=== PATIENT | male | born 1970 | race Caucasian/White ===

== ENCOUNTER 2018-09-25 12:33 | Inpatient (IN) | payer BC ==
[2018-09-25] MEDS ORDERED: morphine CARPU-JECT 4 MG/1 ML DISP.SYRIN IVPUSH ONE (13:30)
--- NOTE | 2018-09-25 13:33 | PDOC ---
History of Present Illness - General Chief Complaint: Urinary Problem Stated Complaint: URINE PROBLEM Time Seen by Provider: 09/25/18 13:28 History Source: Patient Exam Limitations: No Limitations - History of Present Illness Initial Comments: 09/25/18 14:13 47 yo M w/ no known PMHx comes in c/o 1 week of polyuria, polydipsia, dry lips. Also c/o generalized malaise, nausea and 2-3 episodes of NBNB vomiting yesterday. NO other complaints today, no fever/chills, no diarrhea, no burning/ pain on urination, no back pain, no CP, no SOB, no known sick contacts, no recent travel. Pt does not have a PMD. 09/25/18 16:04 Past History - Past Medical History Allergies/Adverse Reactions: Allergies Allergy/AdvReac Type Severity Reaction Status Date / Time No Known Allergies Allergy Verified 09/25/18 12:57 Home Medications: Ambulatory Orders Azithromycin [Zithromax Z-JACINTA (5 DAYS) -] 250 mg PO DAILY #6 tablet 08/19/15 Codeine/Promethazine HCl [Phenergan w/ Codeine Syrup] 1 - 2 tsp PO TID PRN #120 ml 08/19/15 COPD: No - Surgical History Abdominal Surgery: Yes (HERNIA 1997) - Suicide/Smoking/Psychosocial Hx Smoking History: Never smoked Have you smoked in the past 12 months: No Hx Alcohol Use: No Drug/Substance Use Hx: No Substance Use Type: None Review of Systems - Review of Systems Able to Perform ROS?: Yes Constitutional: Yes: Malaise. No: Chills, Fever, Night Sweats HEENTM: No: Eye Pain, Recent change in vision, Throat Pain Respiratory: No: Cough, Shortness of Breath Cardiac (ROS): No: Chest Pain, Palpitations, Chest Tightness ABD/GI: Yes: Nausea, Vomiting. No: Diarrhea, Abdominal cramping : No: Dysuria, Hematuria Musculoskeletal: No: Back Pain Integumentary: No: Rash Neurological: No: Headache, Numbness, Dizziness Psychiatric: No: Change in Appetite Endocrine: No: Unexplained Weight Loss *Physical Exam - Vital Signs Last Vital Signs Temp Pulse Resp BP Pulse Ox 98.4 F 109 H 20 147/95 98 09/25/18 12:55 09/25/18 12:55 09/25/18 12:55 09/25/18 12:55 09/25/18 12:55 - Physical Exam General Appearance: Yes: Nourished, Other (obese). No: Apparent Distress HEENT: positive: CLAUDIA, Normal Voice, Other (dry mucosa). negative: Pale Conjunctivae, Scleral Icterus (R), Scleral Icterus (L) Neck: positive: Supple. negative: Decreased range of motion, Tender midline Respiratory/Chest: positive: Lungs Clear, Normal Breath Sounds. negative: Respiratory Distress, Accessory Muscle Use Cardiovascular: positive: Regular Rhythm, Regular Rate Gastrointestinal/Abdominal: positive: Normal Bowel Sounds, Soft. negative: Tender Musculoskeletal: positive: Normal Inspection. negative: CVA Tenderness, Decreased Range of Motion Extremity: positive: Normal Capillary Refill, Normal Inspection, Normal Range of Motion. negative: Tender, Pedal Edema Integumentary: positive: Normal Color, Dry. negative: Jaundice, Rash Neurologic: positive: Fully Oriented, Alert, Normal Mood/Affect Moderate Sedation - Procedure Monitoring Vital Signs: Procedure Monitoring Vital Signs Temperature 98.4 F 09/25/18 12:55 Pulse Rate 109 H 09/25/18 12:55 Respiratory Rate 09/25/18 12:55 Blood Pressure 147/95 09/25/18 12:55 O2 Sat by Pulse Oximetry (%) 98 09/25/18 12:55 ED Treatment Course - LABORATORY CBC & Chemistry Diagram: 09/25/18 14:12 09/25/18 14:12 Medical Decision Making - Medical Decision Making 47 yo M w/ polyuria, polydipsia, vomiting/nausea R/O new onset DM/DKA 09/25/18 14:00 FS really high, will line and lab, order fluids 09/25/18 15:01 I ordered 7u of insulin regular IV and another bolus of NS Will admit for R/O DKA in new onset DM. I spoke to the hospitalist who asked to page the MICU 09/25/18 16:07 09/25/18 16:27 MICU here seeing patient 09/25/18 17:42 MICU saw patient, hospitalist saw patient, will admit to MICU for Hyperglycemic hyperosmolar state. Insulin drip ordered. 09/25/18 19:11 Patient's care signed over to admitting team *DC/Admit/Observation/Transfer Diagnosis at time of Disposition: Hyperglycemia - Discharge Dispostion Condition at time of disposition: Stable Decision to Admit order: Yes - Referrals - Patient Instructions - Post Discharge Activity - Transfer to Acute Care Facility Accepting Physician:: Dr. Villalobos
[2018-09-25 14:36] LABS: VENOUS PH 7.41 (7.32-7.42)
[2018-09-25 14:43] LABS: BASO % 0.6 % (0-2.0); EOS % 0.2 % (0-4.5); HEMATOCRIT 42.1 % (35.4-49); HEMOGLOBIN 14.4 GM/dL (11.7-16.9); MCH 29.9 pg (25.7-33.7); MCHC 34.3 g/dl (32.0-35.9); MEAN PLT VOLUME 8.8 fl (7.5-11.1); MONO % 8.1 % (3.8-10.2); NEUT % 71.1 % (42.8-82.8); PLATELET COUNT 255 K/MM3 (134-434); RBC 4.83 M/mm3 (4.00-5.60); RDW 12.9 % (11.9-15.9); WHITE BLOOD COUNT 7.8 K/mm3 (4.0-10.0)
[2018-09-25 15:03] LABS: ALBUMIN 4.2 g/dl (3.4-5.0); ALK PHOS 152 U/L (45-117); ANION GAP 14 MMOL/L (8-16); BILIRUBIN,TOTAL 0.8 mg/dL (0.2-1); BLOOD UREA NITROGEN 23 mg/dL (7-18); CALCIUM 10.1 mg/dL (8.5-10.1); CHLORIDE 85 mmol/L (98-107); CO2 25 mmol/L (21-32); CREATININE 1.4 mg/dL (0.55-1.3); LIPASE 279 U/L (73-393); MAGNESIUM 2.6 mg/dL (1.8-2.4); SGOT/AST 14 U/L (15-37); SGPT/ALT 44 U/L (13-61); SODIUM 123 mmol/L (136-145); TOT PROT 8.1 g/dl (6.4-8.2)
[2018-09-25 15:07] LABS: GLUCOSE,RANDOM 832 mg/dL (74-106)
[2018-09-25] MEDS ORDERED: SODIUM CHLORIDE 1,000 ML IV STA (15:59)
[2018-09-25] MEDS ORDERED: INSULIN REGULAR HUMAN 100 UNITS/ML *VIAL IVPUSH ONE (15:59)
[2018-09-25] MEDS ORDERED: INSULIN (NOVOLOG) ASPART 100 UNITS/ML 10ML VIAL ONE (16:08)
[2018-09-25 16:16] LABS: URINE APPEARANCE CLEAR; URINE BILIRUBIN NEGATIVE (<2.0 mg/dL); URINE COLOR COLORLESS; URINE GLUCOSE (UA) 3+ (NEGATIVE); URINE KETONE 1+ (NEGATIVE); URINE LEUK ESTERASE NEGATIVE (NEGATIVE); URINE NITRITE NEGATIVE (NEGATIVE); URINE PROTEIN NEGATIVE (NEGATIVE); URINE UROBILINOGEN NEGATIVE mg/dL (0.2-1.0)
[2018-09-25] MEDS ORDERED: SODIUM CHLORIDE 0.9%/KCL 20 MEQ/1,000 ML INFUS.BAG IV SCH (17:00)
[2018-09-25] MEDS ORDERED: INSULIN REGULAR 100 UNITS in SODIUM CHLORIDE 99 ML IVPB SCH (17:00)
[2018-09-25] MEDS ORDERED: POTASSIUM CHLORIDE TABS 20 MEQ TABLET.ER (FP) PO ONE (17:01)
[2018-09-25] MEDS ORDERED: POTASSIUM CHLORIDE ORAL LIQUID 20 MEQ/15 ML PO ONE (17:04)
[2018-09-25] MEDS ORDERED: INSULIN REGULAR HUMAN 100 UNITS/ML *VIAL ONE (17:10)
[2018-09-25] MEDS ORDERED: POTASSIUM CHLORIDE ORAL LIQUID 20 MEQ/15 ML ONE (17:16)
--- NOTE | 2018-09-25 17:16 | HP ---
Admitting History and Physical - Admission Chief Complaint: polyuria, polydypsia and polyphasia History of Present Illness: this is 47 y/o male patient presented to the hospital after the patient has been having increase urine frequency, increase in thirst and hunger for the past week. he stated that this is the first time he had symptoms like this and decided to come to the hospital. he was complaining also of nausea associated with vomiting twice once after eating a subway sandwich yesterday and the other after eating bowl of cereal this morning. 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: Alzheimer's, CVA, Dementia, Migraine, Multiple Sclerosis, Peripheral Neuropathy, Parkinson's, Seizure, Syncope, TIA, Vertigo, Other Cardiovascular: No: AFIB, Aneurysm, Aortic Insufficiency, Aortic Stenosis, CAD, CHF, Deep Vein Thrombosis, HTN, Hyperlipdemia, [place], Mitral Insufficiency, Mitral Stenosis, Murmur, Pulmonary Hypertension, Other Pulmonary: No: Asthma, Bronchitis, Cancer, COPD, O2 Dependent, Pneumonia, Previously Intubated, Pulmonary Embolus, Pulmonary Fibrosis, Sleep Apnea, Other Gastrointestinal: No: Ascites, Cancer, Constipation, Crohn's Disease, Diverticulitis, Diverticulosis, Esophageal Varices, Gastritis, GERD, GI Bleed, Hemorrhoids, Hiatal Hernia, Inflamatory Bowel Disease, Irritable Bowel Disease, Pancreatitis, Peptic Ulcer Disease, Ulcerative Colitis, Other Hepatobiliary: No: Cirrhosis, Cholelithiasis, Cholecystitis, Choledocholithiasis , Hepatitis A, Hepatitis B, Hepatitis C, Other Renal/: No: Renal Failure, Renal Inusuff, BPH, Cancer, Hematuria, Hemodialysis , Neurogenic Bladder, Renal Calculi, UTI, Other Heme/Onc: No: Anemia, B12 Deficiency, Bleeding Disorder, Cancer, Current Chemotherapy, Current Radiation Therapy, Hemochromatosis, Hypercoaguable State, Myeloproliferative Synd, Sickle Cell Disease, Sickle Cell Trait, Thrombocytopenia, Other Infectious Disease: No: AIDS, C-Diff, Herpes Zoster, HIV, MRSA, STD's, Tuberculosis, VREF, Other - Smoking History Smoking history: Never smoked Have you smoked in the past 12 months: No - Alcohol/Substance Use Hx Alcohol Use: No Home Medications - Allergies Allergies/Adverse Reactions: Allergies Allergy/AdvReac Type Severity Reaction Status Date / Time No Known Allergies Allergy Verified 09/25/18 12:57 - Home Medications Home Medications: Ambulatory Orders Azithromycin [Zithromax Z-JACINTA (5 DAYS) -] 250 mg PO DAILY #6 tablet 08/19/15 Codeine/Promethazine HCl [Phenergan w/ Codeine Syrup] 1 - 2 tsp PO TID PRN #120 ml 08/19/15 Review of Systems - Review of Systems Constitutional: reports: No Symptoms Eyes: reports: No Symptoms HENT: reports: No Symptoms Neck: reports: No Symptoms Cardiovascular: reports: No Symptoms Respiratory: reports: No Symptoms Gastrointestinal: reports: Nausea, Vomiting Genitourinary: reports: Incontinence, Urgency Musculoskeletal: reports: No Symptoms Integumentary: reports: No Symptoms Neurological: reports: No Symptoms Endocrine: reports: Increased Hunger, Increased Thirst Hematology/Lymphatic: reports: No Symptoms Psychiatric: reports: No Symptoms Physical Examination Vital Signs: Vital Signs Temperature 98.4 F 09/25/18 12:55 Pulse Rate 109 H 09/25/18 12:55 Respiratory Rate 20 09/25/18 12:55 Blood Pressure 147/95 09/25/18 12:55 O2 Sat by Pulse Oximetry (%) 98 09/25/18 12:55 Constitutional: Yes: Obese (class III obesity) Eyes: Yes: WNL, Conjunctiva Clear, EOM Intact HENT: Yes: WNL, Atraumatic, Normocephalic Neck: Yes: WNL, Supple, Trachea Midline Cardiovascular: Yes: WNL, Regular Rate and Rhythm, S1, S2 Respiratory: Yes: WNL, Regular, CTA Bilaterally Gastrointestinal: Yes: WNL, Normal Bowel Sounds, Soft ...Rectal Exam: Yes: Deferred Musculoskeletal: Yes: WNL Extremities: Yes: WNL Edema: No Peripheral Pulses WNL: No Integumentary: Yes: WNL Neurological: Yes: WNL, Alert, Oriented ...Motor Strength: WNL Psychiatric: Yes: WNL, Oriented Labs: CBC, BMP 09/25/18 14:12 09/25/18 14:12 Assessment/Plan this is a 47 y/o male presented to the hospital for excessive urination and thirst found to have elevated blood glucose - patient is being admitted to the hospital for hyperglycemic hyperosmolar state with electrolyte abnormalities and JAMES Plan; Hyperglycemic hyperosmolor state: start the patient on insulin drip titrate the drip accordingly then D/c patient should get long acting insulin prior to d/c the drip admit the patient to the MICU for management supplement the potassium for the patient while on the drip labs q6 hours IVF hydration @200cc/hr x 8 hours then 150cc/hr, adjust accordingly obtain an echocardiogram for the patient A1c level cholesterol level triglyceride level consult endocrine consult MICU patient requires an eye exam after d.c diabetic nurse education computer numerical control grinder evaluation JAMES 2/2 hyperosmolar state with excessive urine loss IV fluid hydration monitor kidney function pesudohyponatremia: corrected sodium 138 monitor levels
--- NOTE | 2018-09-25 17:40 | CONSULT ---
Consultation: REQUESTING PROVIDER: CONSULT REQUEST: We have been asked to medically evaluate this patient for ( specify). HISTORY OF PRESENT ILLNESS: 47 y/o M with no significant PMHx presents to the ED with Polyuria, Polydipsia. Patient has not seen a PCP in many years. Approx. 10 days ago, patient began experiencing worsening Polyuria; Currently he is unable to sleep longer than 45 minutes without having to awaken to urinate. Additionally this was accompanied by Polydipsia, polyphagia, dry oral cavity, generalized Malaise. Yesterday patient also experienced nausea accompanied by multiple episodes of NBNB vomiting that have since resolved. This is the first time he has experienced these symptoms. He is unable to identify any aggravating or relieving sx's. He denies any recent weight loss, blurry vision, numbness or tingling in his extremities, or abdominal pain. Denies any recent fevers, chills, chest pain, SOB, diarrhea, constipation, dysuria, hematuria. REVIEW OF SYSTEMS: As per HPI PHYSICAL EXAMINATION Vital Signs - 24 hr 09/25/18 12:55 Temperature 98.4 F Pulse Rate 109 H Respiratory 20 Rate Blood Pressure 147/95 O2 Sat by Pulse 98 Oximetry (%) GENERAL: A&Ox3, NAD HEAD: NCAT EYES: PERRL, EOMI EARS, NOSE, THROAT: Dry mucous membranes. NECK: Supple LUNGS: CTA b/l, No wheezes, no crackles HEART: Regular rate and rhythm, normal S1 and S2 without murmur ABDOMEN: Soft, nontender, not distended, normoactive bowel sounds, no guarding MUSCULOSKELETAL: Normal range of motion at all joints. EXTREMITIES: 2+ pulses, No peripheral edema. NEUROLOGICAL: Cranial nerves II-XII intact. Normal speech. Normal gait. Gross sensation intact throughout. 5/5 Muscle strength throughout. SKIN: Warm, dry Laboratory Results - last 24 hr 09/25/18 09/25/18 09/25/18 14:12 14:12 14:12 WBC 7.8 RBC 4.83 Hgb 14.4 Hct 42.1 MCV 87.0 MCH 29.9 MCHC 34.3 RDW 12.9 Plt Count 255 MPV 8.8 Absolute Neuts (auto) 5.6 Neutrophils % 71.1 Lymphocytes % 20.0 Monocytes % 8.1 Eosinophils % 0.2 Basophils % 0.6 Nucleated RBC % 0 VBG pH POC VBG pCO2 POC VBG pO2 Mixed VBG HCO3 Sodium 123 L Potassium 5.0 Chloride 85 L Carbon Dioxide 25 Anion Gap 14 BUN 23 H Creatinine 1.4 H Creat Clearance w eGFR 53.86 Random Glucose 832 H* Calcium 10.1 Phosphorus 4.0 Magnesium 2.6 H Total Bilirubin 0.8 AST 14 L ALT 44 Alkaline Phosphatase 152 H Total Protein 8.1 Albumin 4.2 Lipase 279 Urine Color Urine Appearance Urine pH Ur Specific Harrison Urine Protein Urine Glucose (UA) Urine Ketones Urine Blood Urine Nitrite Urine Bilirubin Urine Urobilinogen Ur Leukocyte Esterase Acetone, Qual Trace 09/25/18 09/25/18 14:19 15:28 WBC RBC Hgb Hct MCV MCH MCHC RDW Plt Count MPV Absolute Neuts (auto) Neutrophils % Lymphocytes % Monocytes % Eosinophils % Basophils % Nucleated RBC % VBG pH 7.41 POC VBG pCO2 39.0 POC VBG pO2 95.0 H Mixed VBG HCO3 24.5 Sodium Potassium Chloride Carbon Dioxide Anion Gap BUN Creatinine Creat Clearance w eGFR Random Glucose Calcium Phosphorus Magnesium Total Bilirubin AST ALT Alkaline Phosphatase Total Protein Albumin Lipase Urine Color Colorless Urine Appearance Clear Urine pH 6.0 Ur Specific Harrison 1.027 Urine Protein Negative Urine Glucose (UA) 3+ H Urine Ketones 1+ H Urine Blood Negative Urine Nitrite Negative Urine Bilirubin Negative Urine Urobilinogen Negative Ur Leukocyte Esterase Negative Acetone, Qual ASSESSMENT/PLAN: 47 y/o M with no significant PMHx presents to the ED with Polyuria, Polydipsia found to have a blood glucose of 832. #Neuro -No acute issues, Continue to monitor #Pulmonary -No acute issues, Continue to monitor #Cardio -BP stable -Continue to monitor for Tachycardia -No pressors at this time -Monitor and maintain MAP >65 #GI Obesity Elevated Alkaline phosphatase -Denies Abdominal pain; No RUQ pain on exam -Trend, Can consider additional imaging if continues to rise -Counselled on weight loss -Dietary consulted #Endocrine New Onset DM -BG 832 on Admission; Anion gap 14, 1+ Ketones and 3+ Glucose in UA -S/P 7 units Novolog, 2L NS in ED -KDur 40 mEq x1 PO -Started on Insulin drip (0.1u/kg/hr) -Started on NS+ 20 mEq KCl @ 150 mls/hr -Endocrine (Dr. Shresta) Consulted -BMP Q4H -A1c for the AM -Monitor I&Os -Will need outpatient follow up with Set Up Machinist, It Architecture Consultant #Renal Pseudohyponatremia Hypochloremia JAMES -Corrected Na 135 -Likely prerenal from volume depletion -NS+ 20 mEq KCl @ 150 mls/hr -Urine Na, Urine Cr, Urine Osmolality, Serum osmolality pending -Can consider Renal/Kidney US if Cr continues to rise -Trend BMP #FEN -Started on NS+ 20 mEq KCl @ 150 mls/hr -Continue to monitor for Hypokalemia -NPO #PPx -DVT: Heparin TID Dispo: We will continue to follow the patient. Thank you for this consultative opportunity. Visit type - Emergency Visit Emergency Visit: Yes ED Registration Date: 09/25/18 Care time: The patient presented to the Emergency Department on the above date and was hospitalized for further evaluation of their emergent condition. - New Patient This patient is new to me today: Yes Date on this admission: 09/25/18 - Critical Care Critical Care patient: Yes Total Critical Care Time (in minutes): 36 Critical Care Statement: The care of this patient involved high complexity decision making to prevent further life threatening deterioration of the patient 's condition and/or to evaluate & treat vital organ system(s) failure or risk of failure.
--- NOTE | 2018-09-25 18:27 | EKG ---
Test Reason : Blood Pressure : / mmHG Vent. Rate : 103 BPM Atrial Rate : 103 BPM P-R Int : 148 ms QRS Dur : 090 ms QT Int : 344 ms P-R-T Axes : 063 043 038 degrees QTc Int : 450 ms SINUS TACHYCARDIA OTHERWISE NORMAL ECG NO PREVIOUS ECGS AVAILABLE Confirmed by REDD OROZCO MD ([id number]) on 09/25/2018 6:27:06 PM Referred By: Confirmed By:REDD OROZCO MD
[2018-09-25] MEDS ORDERED: INSULIN (LEVEMIR) 100 UNITS/ML UNITS SQ ONE ×2 (19:15→19:16)
[2018-09-25 20:15] LABS: ANION GAP 9 MMOL/L (8-16); BLOOD UREA NITROGEN 18 mg/dL (7-18); CALCIUM 9.2 mg/dL (8.5-10.1); CHLORIDE 100 mmol/L (98-107); CO2 26 mmol/L (21-32); CREATININE 1.1 mg/dL (0.55-1.3); SODIUM 135 mmol/L (136-145)
[2018-09-25 20:28] LABS: GLUCOSE,RANDOM 359 mg/dL (74-106)
[2018-09-25] MEDS ORDERED: CHLORHEXIDINE GLUCONATE 4% CLEANSER FOR DECOLONIZATION TP SCH ×2 (22:00)
[2018-09-25] MEDS ORDERED: HEPARIN NA (PORCINE) 5,000 UNITS/ML 1ML VIAL SQ SCH (22:00)
[2018-09-25] MEDS ORDERED: MUPIROCIN 2% TOPICAL OINTMENT FOR DECOLONIZATION NS SCH ×2 (22:00)
[2018-09-25] MEDS: INSULIN SLIDING SCALE (NOVOLOG) 1 VIAL SQ SCH (22:49)
[2018-09-26] MEDS ORDERED: ACETAMINOPHEN 500 MG TABLET (FP) PO ONE (00:38)
[2018-09-26] MEDS ORDERED: ACETAMINOPHEN 325 MG TABLET (FP) ONE (00:42)
[2018-09-26] MEDS: SODIUM CHLORIDE 0.9%/KCL 20 MEQ/1,000 ML INFUS.BAG IV SCH ×3 (00:52→19:11)
[2018-09-26 02:42] LABS: ANION GAP 9 MMOL/L (8-16); BLOOD UREA NITROGEN 17 mg/dL (7-18); CHLORIDE 98 mmol/L (98-107); CO2 27 mmol/L (21-32); CREATININE 1.1 mg/dL (0.55-1.3); POTASSIUM 4.3 mmol/L (3.5-5.1); SODIUM 135 mmol/L (136-145)
[2018-09-26 02:45] LABS: GLUCOSE,RANDOM 320 mg/dL (74-106)
[2018-09-26] MEDS ORDERED: INSULIN (NOVOLOG) ASPART 100 UNITS/ML 10ML VIAL SQ ONE (02:57)
[2018-09-26 03:06] VITALS: BMI 48.2
[2018-09-26] MEDS: HEPARIN NA (PORCINE) 5,000 UNITS/ML 1ML VIAL SQ SCH ×3 (06:15→22:19)
[2018-09-26] MEDS: INSULIN SLIDING SCALE (NOVOLOG) 1 VIAL SQ SCH ×4 (06:18→17:25)
[2018-09-26 07:27] LABS: BASO % 0.7 % (0-2.0); EOS % 1.3 % (0-4.5); HEMATOCRIT 40.3 % (35.4-49); HEMOGLOBIN 14.1 GM/dL (11.7-16.9); LYMPH % 34.4 % (8-40); MCH 30.3 pg (25.7-33.7); MEAN CELL VOLUME 86.7 fl (80-96); MEAN PLT VOLUME 8.3 fl (7.5-11.1); MONO % 8.6 % (3.8-10.2); PLATELET COUNT 251 K/MM3 (134-434); RBC 4.64 M/mm3 (4.00-5.60); RDW 13.1 % (11.9-15.9); WHITE BLOOD COUNT 6.3 K/mm3 (4.0-10.0)
[2018-09-26 07:57] LABS: CHOLESTEROL 188 mg/dL (50-200); HDL CHOLESTEROL 37 mg/dL (40-60); TRIGLYCERIDES 227 mg/dL (0-150)
[2018-09-26 08:02] LABS: ALBUMIN 3.8 g/dl (3.4-5.0); ALK PHOS 130 U/L (45-117); ANION GAP 7 MMOL/L (8-16); BILIRUBIN,TOTAL 0.6 mg/dL (0.2-1); BLOOD UREA NITROGEN 17 mg/dL (7-18); CALCIUM 8.8 mg/dL (8.5-10.1); CHLORIDE 97 mmol/L (98-107); CO2 30 mmol/L (21-32); CREATININE 1.1 mg/dL (0.55-1.3); MAGNESIUM 2.3 mg/dL (1.8-2.4); PHOSPHOROUS 3.3 mg/dL (2.5-4.9); POTASSIUM 4.4 mmol/L (3.5-5.1); SGOT/AST 14 U/L (15-37); SGPT/ALT 37 U/L (13-61); SODIUM 134 mmol/L (136-145); TOT PROT 7.5 g/dl (6.4-8.2)
[2018-09-26 08:08] LABS: GLUCOSE,RANDOM 311 mg/dL (74-106)
--- NOTE | 2018-09-26 08:40 | PN ---
Progress Note, Physician History of Present Illness: 7 y/o male patient presented to the hospital after the patient has been having increase urine frequency, increase in thirst and hunger for the past week - Current Medication List Current Medications: Active Medications Heparin Sodium (Porcine) (Heparin -) 5,000 unit SQ TID [facility] Last Admin: 09/26/18 06:15 Dose: 5,000 unit Potassium Chloride/Sodium Chloride (Ns+20 Meq Kcl -) 20 meq in 1,000 mls @ 150 mls/hr IV ASDIR [facility] Last Admin: 09/26/18 00:52 Dose: 150 mls/hr Insulin Aspart (Novolog Vial Sliding Scale -) 1 vial SQ ACHS [facility]; Protocol Last Admin: 09/26/18 06:18 Dose: 8 units - Objective Vital Signs: Vital Signs Temperature 98.0 F 09/26/18 02:00 Pulse Rate 86 09/26/18 02:00 Respiratory Rate 20 09/26/18 02:00 Blood Pressure 148/79 09/26/18 02:00 O2 Sat by Pulse Oximetry (%) 97 09/25/18 21:27 Constitutional: Yes: Well Nourished, No Distress, Calm Eyes: Yes: Conjunctiva Clear, EOM Intact HENT: Yes: Atraumatic, Normocephalic Neck: Yes: Supple, Trachea Midline Cardiovascular: Yes: Regular Rate and Rhythm, S2. No: JVD, Gallop, Murmur Respiratory: Yes: Regular, CTA Bilaterally Gastrointestinal: Yes: Normal Bowel Sounds, Soft Musculoskeletal: No: Back Pain, Joint Stiffness Edema: No Peripheral Pulses: Left Doralis Pedis: 2+, Right Dorsalis Pedis: 2+ Neurological: Yes: Alert, Oriented ...Motor Strength: WNL, LUE, LLE, RUE Labs: CBC, BMP 09/26/18 06:30 09/26/18 06:30 Problem List - Problems (1) New onset type 2 diabetes mellitus Assessment/Plan: New onset DM with sever Hypoglycemia will start weight based 15 unit levimir as per insurance coverage, metformin , in the future we can add oral agent Hba1C 11.2, Diabetic education and Diabetic Diet Code(s): E11.9 - TYPE 2 DIABETES MELLITUS WITHOUT COMPLICATIONS (2) Hyperglycemia Assessment/Plan: due to uncontrolled dm Code(s): R73.9 - HYPERGLYCEMIA, UNSPECIFIED (3) JAMES (acute kidney injury) Assessment/Plan: due to dehydration resolved Code(s): N17.9 - ACUTE KIDNEY FAILURE, UNSPECIFIED (4) Dehydration Assessment/Plan: Due to hyperglycemia, now resolved Code(s): E86.0 - DEHYDRATION
[2018-09-26] MEDS ORDERED: MUPIROCIN 2% TOPICAL OINTMENT FOR DECOLONIZATION NS SCH (10:00)
--- NOTE | 2018-09-26 11:19 | CONSULT ---
Consult Consult Specialty:: Endocrinology Referred by:: April Nugent MD Reason for Consultation:: New Onset DM - History of Present Illness Chief Complaint: Polyuria, polydipsia, Nauses History of Present Illness: This is 47 y/o male with no PMHX who hasn't seen any Physician for many years who presented to the hospital with c/o Polyuria, polydipsia and Nocturia every 45 mins for about a week and nausea and vomiting starting the day before admission. Has lost about 30 lbs in the last 2 months. Used to exercise a lot in the past but hasn't been doing it since he started working the nights. No family h/o DM. Admission blood sugar was 832 with Creatinine of 1.4. Pt was treated with Insulin with improvement of blood sugar and improvement in renal function. Pt denies any visual symptoms and paresthesia of feet. - History Source History Provided By: Patient, Medical Record - Past Medical History RN PROGRESSIVE CARE UNIT: No: Alzheimer's, CVA, Dementia, Migraine, Multiple Sclerosis, Peripheral Neuropathy, Parkinson's, Seizure, Syncope, TIA, Vertigo, Other Cardio/Vascular: No: AFIB, Aneurysm, Aortic Insufficiency, Aortic Stenosis, CAD , CHF, Deep Vein Thrombosis, HTN, Hyperlipdemia, [place], Mitral Insufficiency, Mitral Stenosis, Murmur, Pulmonary Hypertension, Other Pulmonary: No: Asthma, Bronchitis, Cancer, COPD, O2 Dependent, Pneumonia, Previously Intubated, Pulmonary Embolus, Pulmonary Fibrosis, Sleep Apnea, Other Gastrointestinal: No: Ascites, Cancer, Constipation, Crohn's Disease, Diverticulitis, Diverticulosis, Esophageal Varices, Gastritis, GERD, GI Bleed, Hemorrhoids, Hiatal Hernia, Inflamatory Bowel Disease, Irritable Bowel Disease, Pancreatitis, Peptic Ulcer Disease, Ulcerative Colitis, Other Hepatobiliary: No: Cirrhosis, Cholelithiasis, Cholecystitis, Choledocholithiasis , Hepatitis A, Hepatitis B, Hepatitis C, Other Renal/: No: Renal Failure, Renal Inusuff, BPH, Cancer, Hematuria, Hemodialysis , Neurogenic Bladder, Renal Calculi, UTI, Other Infectious Disease: No: AIDS, C-Diff, Herpes Zoster, HIV, MRSA, STD's, Tuberculosis, VREF, Other - Alcohol/Substance Use Hx Alcohol Use: No - Smoking History Smoking history: Never smoked Have you smoked in the past 12 months: No Home Medications - Allergies Allergies/Adverse Reactions: Allergies Allergy/AdvReac Type Severity Reaction Status Date / Time No Known Allergies Allergy Verified 09/25/18 12:57 - Home Medications Home Medications: Ambulatory Orders Azithromycin [Zithromax Z-JACINTA (5 DAYS) -] 250 mg PO DAILY #6 tablet 08/19/15 Codeine/Promethazine HCl [Phenergan w/ Codeine Syrup] 1 - 2 tsp PO TID PRN #120 ml 08/19/15 Family Disease History - Family Disease History Other Family History: No family h/o DM Review of Systems - Review of Systems Constitutional: reports: Malaise, Weakness Eyes: reports: No Symptoms HENT: reports: No Symptoms Neck: reports: No Symptoms Cardiovascular: reports: No Symptoms Respiratory: reports: No Symptoms Gastrointestinal: reports: No Symptoms Genitourinary: reports: No Symptoms Musculoskeletal: reports: No Symptoms Integumentary: reports: No Symptoms Neurological: reports: No Symptoms Endocrine: reports: Unexplained Weight Loss, Other (polyuria, polydipsia, nocturia, dry mouth) Hematology/Lymphatic: reports: No Symptoms Psychiatric: reports: No Symptoms Physical Exam Vital Signs: Vital Signs Temperature 98.0 F 09/26/18 02:00 Pulse Rate 86 09/26/18 02:00 Respiratory Rate 20 09/26/18 02:00 Blood Pressure 148/79 09/26/18 02:00 O2 Sat by Pulse Oximetry (%) 97 09/25/18 21:27 Constitutional: Yes: No Distress, Calm Eyes: Yes: Conjunctiva Clear, EOM Intact HENT: Yes: Atraumatic, Normocephalic Neck: Yes: Supple, Trachea Midline Cardiovascular: Yes: Regular Rate and Rhythm Respiratory: Yes: Regular, CTA Bilaterally Gastrointestinal: Yes: Normal Bowel Sounds, Soft Musculoskeletal: Yes: WNL Extremities: Yes: WNL Neurological: Yes: Alert, Oriented Labs: CBC, BMP 09/26/18 06:30 09/26/18 06:30 Problem List - Problems (1) New onset type 2 diabetes mellitus Code(s): E11.9 - TYPE 2 DIABETES MELLITUS WITHOUT COMPLICATIONS Assessment/Plan AP: New Onset T2 DM Obesity ? HTN Diet exercise discussed Diabetes education done Nutrition consult Increase Levemir to 15 units daily Change Novolog SS coverage Add Metformin 500mg BID Teach pt to self monitor blood sugaar and self inject Insulin Will F/u
[2018-09-26] MEDS ORDERED: INSULIN (NOVOLOG) ASPART 100 UNITS/ML 10ML VIAL ONE (11:56)
[2018-09-26] MEDS: metFORMIN HCL 500 MG TABLET (FP) PO SCH (17:25)
[2018-09-26] MEDS ORDERED: CHLORHEXIDINE GLUCONATE 4% CLEANSER FOR DECOLONIZATION TP SCH (22:00)
[2018-09-26] MEDS ORDERED: INSULIN SLIDING SCALE (NOVOLOG) 1 VIAL SQ SCH (22:00)
[2018-09-26] MEDS ORDERED: INSULIN (LEVEMIR) 100 UNITS/ML UNITS SQ SCH (22:00)
[2018-09-27] MEDS: SODIUM CHLORIDE 0.9%/KCL 20 MEQ/1,000 ML INFUS.BAG IV SCH (03:41)
[2018-09-27 05:59] VITALS: BP 143/82; PULSE 73; TEMP 98.2
[2018-09-27] MEDS: metFORMIN HCL 500 MG TABLET (FP) PO SCH (06:40)
[2018-09-27] MEDS: HEPARIN NA (PORCINE) 5,000 UNITS/ML 1ML VIAL SQ SCH ×2 (06:40→14:14)
[2018-09-27] MEDS: INSULIN SLIDING SCALE (NOVOLOG) 1 VIAL SQ SCH (06:41)
[2018-09-27] MEDS ORDERED: INSULIN (NOVOLOG) ASPART 100 UNITS/ML 10ML VIAL ONE (07:26)
[2018-09-27] MEDS ORDERED: INSULIN (LEVEMIR) 100 UNITS/ML UNITS SQ ONE (07:26)
--- NOTE | 2018-09-27 09:59 | PN ---
Progress Note (short form) - Note Progress Note: C/o feeling tired Blood glucose 200 to 300s No hypos Vital Signs Period Temp Pulse Resp BP Sys/Young Pulse Ox Last 24 Hr 98.1 F-98.5 F 73-99 18-20 132-143/71-89 98 PE: AOx3 Neck: Supple, No JVD HEENT: PERRL, EOMI' Lungs: CTA CVs: S1S2 Abd: Benign EXt: No edema Neuro: No focal deficit CMP Sodium 134 mmol/L (136-145) L 09/26/18 06:30 Potassium 4.4 mmol/L (3.5-5.1) 09/26/18 06:30 Chloride 97 mmol/L (98-107) L 09/26/18 06:30 Carbon Dioxide 30 mmol/L (21-32) 09/26/18 06:30 Anion Gap 7 MMOL/L (8-16) L 09/26/18 06:30 BUN 17 mg/dL (7-18) 09/26/18 06:30 Creatinine 1.1 mg/dL (0.55-1.3) 09/26/18 06:30 Creat Clearance w eGFR > 60 (>60) 09/26/18 06:30 POC Glucometer 282 UNITS (80-120) 09/27/18 06:38 Random Glucose 311 mg/dL (74-106) H* 09/26/18 06:30 Hemoglobin A1c % 11.1 % (4.2-6.3) H 09/25/18 14:12 Serum Osmolality 320 mosm/kg (278-305) H 09/25/18 14:12 Lactic Acid 1.5 mmol/L (0.4-2.0) 09/25/18 19:35 Calcium 8.8 mg/dL (8.5-10.1) 09/26/18 06:30 Phosphorus 3.3 mg/dL (2.5-4.9) 09/26/18 06:30 Magnesium 2.3 mg/dL (1.8-2.4) 09/26/18 06:30 Total Bilirubin 0.6 mg/dL (0.2-1) 09/26/18 06:30 AST 14 U/L (15-37) L 09/26/18 06:30 ALT 37 U/L (13-61) 09/26/18 06:30 Alkaline Phosphatase 130 U/L (45-117) H 09/26/18 06:30 Total Protein 7.5 g/dl (6.4-8.2) 09/26/18 06:30 Albumin 3.8 g/dl (3.4-5.0) 09/26/18 06:30 Triglycerides 227 mg/dL (0-150) H 09/26/18 06:30 Cholesterol 188 mg/dL (50-200) 09/26/18 06:30 Total LDL Cholesterol 117 mg/dL (5-100) H 09/26/18 06:30 HDL Cholesterol 37 mg/dL (40-60) L 09/26/18 06:30 Lipase 279 U/L (73-393) 09/25/18 14:12 Current Medications Generic Name Dose Route Start Last Admin Trade Name Freq PRN Reason Stop Dose Admin Heparin Sodium (Porcine) 5,000 unit 09/26/18 06:00 09/27/18 06:40 Heparin - SQ Not Given TID AIMEE Potassium Chloride/Sodium Chloride 20 meq in 1,000 mls @ 150 mls/hr 09/25/18 22:59 09/27/18 03:41 Ns+20 Meq Kcl - IV 150 mls/hr ASDIR AIMEE Administration Insulin Aspart 1 vial 09/26/18 22:00 09/26/18 22:19 Novolog Vial Sliding Scale - SQ 8 units HS AIMEE Administration Protocol Insulin Aspart 1 vial 09/26/18 16:30 09/27/18 06:41 Novolog Vial Sliding Scale - SQ 8 units TIDAC AIMEE Administration Protocol Insulin Detemir 15 units 09/26/18 22:00 09/26/18 22:20 Levemir Vial SQ 15 units HS AIMEE Administration Metformin HCl 500 mg 09/26/18 16:30 09/27/18 06:40 Glucophage - PO 500 mg BID@0700,1630 AIMEE Administration AP: New Onset T2 DM Obesity ? HTN Diet exercise discussed Diabetes education done Nutrition consult Increase Levemir to 20 units daily Novolog SS coverage Metformin 500mg BID Teach pt to self monitor blood sugaar and self inject Insulin F/u in office in one week. To call if any questions. Will F/u Problem List - Problems (1) New onset type 2 diabetes mellitus Code(s): E11.9 - TYPE 2 DIABETES MELLITUS WITHOUT COMPLICATIONS
[2018-09-27] MEDS ORDERED: INSULIN SLIDING SCALE (NOVOLOG) 1 VIAL SQ SCH (10:00)
--- NOTE | 2018-09-27 13:55 | DS ---
Physical Exam: SUBJECTIVE: Patient seen and examined at bedside. No acute events overnight. OBJECTIVE: Vital Signs Period Temp Pulse Resp BP Sys/Young Pulse Ox Last 24 Hr 98.1 F-98.5 F 73-99 18-20 132-143/71-89 98 PHYSICAL EXAM GENERAL: A&Ox3, NAD HEAD: NCAT EYES: PERRL, EOMI EARS, NOSE, THROAT: Dry mucous membranes. NECK: Supple LUNGS: CTA b/l, No wheezes, no crackles HEART: Regular rate and rhythm, normal S1 and S2 without murmur ABDOMEN: Soft, nontender, not distended, normoactive bowel sounds, no guarding MUSCULOSKELETAL: Normal range of motion at all joints. EXTREMITIES: 2+ pulses, No peripheral edema. NEUROLOGICAL: Cranial nerves II-XII intact. Normal speech. Normal gait. Gross sensation intact throughout. 5/5 Muscle strength throughout. SKIN: Warm, dry LABS Laboratory Results - last 24 hr 09/26/18 09/26/18 09/27/18 17:23 22:10 06:38 POC Glucometer 353 355 282 09/27/18 11:40 POC Glucometer 300 HOSPITAL COURSE: Date of Admission:09/25/18 Date of Discharge: 09/27/18 Discharge Summary Reason For Visit: HYPERGLYCEMIA Current Active Problems New onset type 2 diabetes mellitus (Chronic) Condition: Stable - Instructions Diet, Activity, Other Instructions: You came to the hospital for complaints of urinary frequency, increased hunger and thirst. During your hospital admission, labs were done and you were found to have extremely high blood sugar levels. You hemoglobin A1c is 11.1 and you were found to have insulin-dependent diabetes mellitus. You were given insulin and monitored in the hospital. Your symptoms improved. You are being discharged home. MEDICATIONS Please take Metformin 500 mg by mouth twice a day. You have been given a referral to obtain a glucometer with glucose strips and lancets in order for you to monitor your blood sugars daily. Please take your blood sugar in the morning and once before meals everyday. Please inject Levemir (long-acting insulin) 20 units once at night. Please inject Novolog (short-acting insulin) using the follow sliding scale: If your blood glucose is 101-150, inject 4 units. 151-200, inject 6 units. 201-250, inject 8 units. 251-300, inject 10 units. 301-350, inject 12 units. 351-400, inject 14 units. >400, inject 14 units. PLEASE TAKE NOVOLOG (SHORT-ACTING INSULIN) WITH FOOD. It is extremely important that you keep your blood sugar levels stable and that you continue taking your insulin regularly. REFERRALS You have been given a referral to see Dr. Dora Mack for primary care follow up. Please see your lens examiner, Dr. Ware, within 1 week. If you experience persistent nausea/vomiting, abdominal pain, seizures, dizziness, chest pain, shortness of breath, or extremely high blood sugar levels , please proceed to your nearest emergency room immediately. Referrals: Dora Mack MD [Staff Physician] - Francisco Javier Ware MD [Staff Physician] - Disposition: HOME - Home Medications Comprehensive Discharge Medication List: Ambulatory Orders Azithromycin [Zithromax Z-JACINTA (5 DAYS) -] 250 mg PO DAILY #6 tablet 08/19/15 Codeine/Promethazine HCl [Phenergan w/ Codeine Syrup] 1 - 2 tsp PO TID PRN #120 ml 08/19/15 Miscellaneous Medical Supply [Glucometer Device] 1 each .ROUTE ASDIR #1 kit Miscellaneous Medical Supply [Glucometer Test Strips #100] 1 each .ROUTE ASDIR # 1 box 09/26/18 metFORMIN HCL [Glucophage -] 500 mg PO BID@0700,1630 #60 tablet 09/26/18 Insulin Detemir [Levemir Flextouch] 20 unit SQ DAILY #2 insuln.pen 09/27/18 Insulin Sliding Scale [Novolog Vial Sliding Scale -] See Protocol SQ TIDAC #5 pen 09/27/18
--- NOTE | 2018-09-27 14:03 | PN ---
Teaching Attending Note Name of Resident: Joycelyn Sethi ATTENDING PHYSICIAN STATEMENT I saw and evaluated the patient. I reviewed the resident's note and discussed the case with the resident. I agree with the resident's findings and plan as documented. SUBJECTIVE:No new complaints OBJECTIVE: Vital Signs Period Temp Pulse Resp BP Sys/Young Pulse Ox Last 24 Hr 98.1 F-98.5 F 73-99 18-20 132-143/71-89 98 Constitutional: Yes: Well Nourished, No Distress, Calm Eyes: Yes: Conjunctiva Clear, EOM Intact HENT: Yes: Atraumatic, Normocephalic Neck: Yes: Supple, Trachea Midline Cardiovascular: Yes: Regular Rate and Rhythm, S2. No: JVD, Gallop, Murmur Respiratory: Yes: Regular, CTA Bilaterally Gastrointestinal: Yes: Normal Bowel Sounds, Soft Musculoskeletal: No: Back Pain, Joint Stiffness Edema: No Peripheral Pulses: Left Doralis Pedis: 2+, Right Dorsalis Pedis: 2+ Neurological: Yes: Alert, Oriented ...Motor Strength: WNL, LUE, LLE, RUE ASSESSMENT AND PLAN:47 yrs old morbidly obese man admitted with new onset T2DM with JAMES, dehydratiin and severe Hypoglycemia, improved with Insulin therapy: AM FS [address]; Increse Levimir to 25 units at bed time Correction dose Lispro pre meal TID 2 unit 150-170 4 units 170-200 Cont Metformin. Can be Dc Home. Problem List - Problems (1) New onset type 2 diabetes mellitus Assessment/Plan: Optimize Glycemic control increse Levmir to 25 units t Code(s): E11.9 - TYPE 2 DIABETES MELLITUS WITHOUT COMPLICATIONS (2) Hyperglycemia Assessment/Plan: due to uncontrolled dm Code(s): R73.9 - HYPERGLYCEMIA, UNSPECIFIED (3) JAMES (acute kidney injury) Assessment/Plan: due to dehydration resolved Code(s): N17.9 - ACUTE KIDNEY FAILURE, UNSPECIFIED (4) Dehydration Assessment/Plan: Due to hyperglycemia, now resolved Code(s): E86.0 - DEHYDRATION
[2018-09-27] MEDS ORDERED: INSULIN (LEVEMIR) 100 UNITS/ML UNITS SQ SCH (22:00)
== END 2018-09-27 14:32 | disposition home or self-care (01) | DRG 638 ==
LOC: JER 12:33 → JERBED 17:44 → J5S 22:30
PROVIDERS: ADMIT Internal Medicine; ATTEND Internal Medicine
DX: E11.65 Type 2 diabetes mellitus with hyperglycemia (principal); E87.1 Hypo-osmolality and hyponatremia; N17.9 Acute kidney failure, unspecified; Z68.42 Body mass index [BMI] 45.0-49.9, adult; E11.9 Type 2 diabetes mellitus without complications; E66.01 Morbid (severe) obesity due to excess calories; E87.8 Other disorders of electrolyte and fluid balance, not elsewhere classified; E86.0 Dehydration; E87.6 Hypokalemia; R63.1 Polydipsia
CPT/HCPCS: 36415; 80048; 80053; 80061; 81003; 82009; 82570; 82803; 82962; 83036; 83605; 83690; 83721; 83735; 83930; 83935; 84100; 84133; 84300; 85025; 87086; 93005; 93010; 99285-25; J1644; J7030